=== PATIENT | female | born 1970 ===

== ENCOUNTER 2018-02-16 06:39 | Day surgery (SDC) | payer MEDICAID ==
[2018-02-16] MEDS ORDERED: Propofol 10 mg/ml Inj (20 ML) ONE (08:33)
--- NOTE | 2018-02-16 08:37 | CP.SDSHP ---
Same Day Surgery H & P - History Proposed Procedure: colonoscopy Pre-Op Diagnosis: constipation - Previous Medical/Surgical History Endocrine/Metabolic: Other (hyperlipidemia) Previous Surgical History: none - Allergies Allergies: Allergies No Known Allergies Allergy (Verified 02/16/18 06:53) - Current Medications Current Medications: reviewed, per reconciliation - Physical Exam General Appearance: wdwn nad Vital Signs: Vital Signs 02/16/18 06:50 Temperature 98.0 F Pulse Rate 80 Respiratory 20 Rate Blood Pressure 109/71 O2 Sat by Pulse 97 Oximetry Mental Status: Alert & Oriented x3 Heart: WNL Lungs: WNL GI: WNL - {Optional Preform as Required} Abdomen: WNL - Impression Impression: constipation Pt. Evaluated Today:Candidate for Anesthesia & Procedure: Yes - Date & Time Date: 02/16/18 Time: 08:37 Short Stay Discharge - Short Stay Discharge Admitting Diagnosis/Reason for Visit: CONSTIPATION, UNSPECIFIED Disposition: HOME/ ROUTINE
[2018-02-16 09:27] VITALS: TEMP 96.9
[2018-02-16 09:59] VITALS: BP 118/72; PULSE 60; RESP 20; O2SAT 100
== END 2018-02-16 10:00 | disposition home or self-care (01) ==
LOC: C.ENDO 06:39
PROVIDERS: ATTEND Internal Medicine Gastroenterology
DX: D12.4 Benign neoplasm of descending colon (principal); K59.00 Constipation, unspecified; K64.0 First degree hemorrhoids; K63.89 Other specified diseases of intestine
CPT/HCPCS: 45380; 84703; 88305; J2704

== ENCOUNTER 2018-06-20 12:31 | Outpatient (CLI) | payer MEDICAID | END 2018-06-20 12:32 | disposition home or self-care (01) | LOC: C.MAMMO 12:32 ==